=== PATIENT | female | born 1975 | race Caucasian/White ===

== ENCOUNTER 2017-06-08 20:58 | Emergency (ER) | payer SELFPAY ==
[~2017-06-08] VITALS: Ht 157.5 cm; Wt 85.0 kg
[2017-06-08 21:03] VITALS: Ht 157.5 cm; Wt 85.0 kg
[2017-06-08] MEDS ORDERED: KETOROLAC 60 MG INJ IM STA (21:23)
[2017-06-08 21:38] VITALS: BP 118/65; PULSE 97; RESP 16; TEMP 98.1
--- NOTE | 2017-06-08 21:42 | ERD ---
ER Documentation Chief Complaint Chief Complaint right arm pain x 4 days, no injury noted HPI 42-year-old female presents here in emergency right wrist pain for 4 days. Patient describes the pain as throbbing pain, 6/10 scale, as was upon movement. Patient denies any numbness or tingling. Patient denies any fever or chills. Patient was trying to fluff out some carpet that was heavy and started to have the pain afterwards. ROS All systems reviewed and are negative except as per history of present illness. Medications Home Meds Reported Medications [none] Unknown Strength No Conflict Check 06/08/17 Allergies Allergies: Coded Allergies: No Known Allergy (Unverified , 06/08/17) PMhx/Soc Medical and Surgical Hx: pt denies Medical Hx, pt denies Surgical Hx History of Surgery: No Anesthesia Reaction: No Hx Neurological Disorder: No Hx Respiratory Disorders: No Hx Cardiac Disorders: No Hx Psychiatric Problems: No Hx Miscellaneous Medical Probl: No Hx Alcohol Use: No Hx Substance Use: No Hx Tobacco Use: No Smoking Status: Unknown if ever smoked FmHx Family History: No coronary disease, No diabetes, No other Physical Exam Vitals Vital Signs Date Time Temp Pulse Resp B/P Pulse Ox O2 Delivery O2 Flow Rate FiO2 06/08/17 21:38 98.1 97 16 118/65 99 Room Air 06/08/17 21:03 99.0 111 20 164/78 99 Physical Exam GENERAL: The patient is well developed and appropriate for usual state of health, in no apparent distress. CHEST: Clear to auscultation bilaterally. There are no rales, wheezes or rhonchi. HEART: Regular rate and rhythm. No murmurs, clicks, rubs or gallops. No S3 or S4. ABDOMEN: Soft, nontender and nondistended. Good bowel sounds. No rebound or guarding. No gross peritonitis. No gross organomegaly or masses. No Lara sign or McBurney point tenderness. BACK: No midline or flank tenderness. EXTREMITIES: Noted some swelling on the right wrist, able to do for range of motion without any restriction equal pulses bilaterally. There is no peripheral clubbing, cyanosis or edema. No focal swelling or erythema. Full range of motion. Grossly neurovascularly intact. NEURO: Alert and oriented. Cranial nerves 2-12 intact. Motor strength in all 4 extremities with 5/5 strength. Sensation grossly intact. Normal speech and gait. SKIN: There is no apparent rash or petechia. The skin is warm and dry. HEMATOLOGIC AND LYMPHATIC: There is no evidence of excessive bruising or lymphedema. No gross cervical, axillary, or inguinal lymphadenopathy. Results 24 hrs Current Medications Medications (Trade) Dose Ordered Sig/Dominique Route PRN Reason Start Time Stop Time Status Last Admin Dose Admin Ketorolac Tromethamine (Toradol) 60 mg ONCE STAT IM 06/08/17 21:23 06/08/17 21:24 DC 06/08/17 21:37 Patient was given medication for pain here in emergency department, after treatment, patient verbalized feeling much better. Patient's pain is improved. PROCEDURE: Right wrist. CLINICAL INDICATION: Pain. TECHNIQUE: 4 views including PA, lateral and oblique views of the right wrist were performed. COMPARISON: None. FINDINGS: There is no fracture, dislocation or bone destruction. The joint spaces are within normal limits. Bone mineralization is within normal limits. There is no radiopaque foreign body or abnormal calcification. IMPRESSION: No evidence of fracture. .Manny Elmore MD, MD Date Time Electronically viewed and signed by .Manny Elmore MD, MD on 06/08/2017 22:24 .T/ CC: SYMONE ROSAS DIRECTOR [employer] After receiving patients xray report, a right wrist support was applied on the patients right wrist. After application of the splint, patient has intact sensation and circulation on distal area of the affected joint. Patient does not complain of numbness or tingling after application of the splint. Patient tolerated procedure well. Procedures/MDM Medical Decision Making: Patient's pain is most likely consistent with a wrist sprain. There is no suspicion for neurovascular compromise. Patient has intact sensation and circulation of the affected extremity. There is low suspicion for septic arthritis. Patient does not have any fever. Radiology exams of the affected area does not show any fracture or dislocation. Disposition: Home. Patient is given prescription for ibuprofen for pain. Patient was advised to elevate the affected area and apply ice on affected area. Patient was advised that if symptoms are worse, numbness, tingling, high fever, unable to move joint, worsening symptoms, to return to emergency department immediately. Otherwise, patient is advised to follow up with the primary care doctor in 5-7 days for reevaluation of symptoms. Disclaimer: Inadvertent spelling and grammatical errors are likely due to EHR/ dictation software use and do not reflect on the overall quality of patient care. Also, please note that the electronic time recorded on this note does not necessarily reflect the actual time of the patient encounter. Departure Diagnosis: Primary Impression: Wrist sprain Encounter type: initial encounter Laterality: right Qualified Code: S63.501A - Sprain of right wrist, initial encounter Condition: Stable Patient Instructions: Wrist Sprain Additional Instructions: Patient is given prescription for ibuprofen for pain. Patient was advised to elevate the affected area and apply ice on affected area. Patient was advised that if symptoms are worse, numbness, tingling, high fever, unable to move joint , worsening symptoms, to return to emergency department immediately. Otherwise, patient is advised to follow up with the primary care doctor in 5-7 days for reevaluation of symptoms. SYMONE ROSAS NP Jun 08, 2017 21:42
--- NOTE | 2017-06-08 22:25 | RADRPT ---
PROCEDURE: Right wrist. CLINICAL INDICATION: Pain. TECHNIQUE: 4 views including PA, lateral and oblique views of the right wrist were performed. COMPARISON: None. FINDINGS: There is no fracture, dislocation or bone destruction. The joint spaces are within normal limits. Bone mineralization is within normal limits. There is no radiopaque foreign body or abnormal calcif ication. IMPRESSION: No evidence of fracture. .Manny Elmore MD, MD Date Time Electronically viewed and signed by .Manny Elmore MD, on 06/08/2017 22:24 .T/
[2017-06-08] MEDS ORDERED: IBUP-1542 PO (22:41)
== END 2017-06-08 23:00 | disposition home or self-care (01) ==
LOC: FTE 20:58
DX: S63.501A Unspecified sprain of right wrist, initial encounter (principal); X50.0XXA Overexertion from strenuous movement or load, initial encounter; Y92.9 Unspecified place or not applicable
CPT/HCPCS: 29125; 73110; 96372; 99284; J1885